=== PATIENT | male | born 1980 | race Two or more races ===

== ENCOUNTER 2019-06-12 11:08 | Emergency (ER) | payer SELFPAY ==
[~2019-06-12] VITALS: Ht 160 cm; Wt 81.6 kg
[2019-06-12 11:08] VITALS: BP 135/80
--- NOTE | 2019-06-12 12:36 | Emergency Room Report ---
History of Present Illness General Chief Complaint: Alcohol Intoxication Source: Patient (Ministerio Tilley MD) Present Illness HPI 39-year-old male presents with acute alcohol intoxication, alleviated by not drinking alcohol severity is moderate, constant he was drinking earlier today with some friends, he had no fall no trauma liquor store called 911 to have them removed patient presents for acute alcohol intoxication COVID-19 risk:Contact w/high r: No COVID-19 risk:Travel to affect: No Has patient experienced jones: No (Ministerio Tilley MD) Allergies: Coded Allergies: No Known Allergies (Unverified , 06/12/19) Patient History Limited by: medical condition - Currently intoxicated Past Medical History: see triage record Reviewed Nursing Documentation: PMH: Agreed; PSxH: Agreed (Ministerio Tilley MD) Nursing Documentation-PMH Past Medical History: No History, Except For Hx Diabetes: Yes (Ministerio Tilley MD) Review of Systems All Other Systems: limited - Currently intoxicated (Ministerio Tilley MD) Physical Exam Vital Signs Date Time Temp Pulse Resp B/P (MAP) Pulse Ox O2 Delivery O2 Flow Rate FiO2 06/12/19 11:02 120 18 130/85 (100) 98 Room Air 06/12/19 11:08 98.3 General Appearance: well appearing, no apparent distress Head: normocephalic, atraumatic Eyes: bilateral eye PERRL, bilateral eye EOMI ENT: hearing grossly normal, normal voice Neck: full range of motion, supple Respiratory: no respiratory distress, speaking full sentences Neurologic: alert, normal gait Psychiatric: mood/affect normal Skin: no rash (Ministerio Tilley MD) Medical Decision Making Diagnostic Impression: Primary Impression: Acute alcoholic intoxication Qualified Codes: F10.920 - Alcohol use, unspecified with intoxication, uncomplicated ER Course 39-year-old male presents with acute alcohol intoxication will continue to observe patient until sobriety Patient signed out to Dr. Hall (Ministerio Tilley MD) Last Vital Signs Date Time Temp Pulse Resp B/P (MAP) Pulse Ox O2 Delivery O2 Flow Rate FiO2 06/12/19 11:08 112 18 Room Air 06/12/19 11:08 98.3 135/80 98 (Ministerio Tilley MD) Reevaluation Time: 18:36 Status: improved Reevaluation Impression Patient is clinically sober. He is awake and ambulatory. He is eating at bedside. Provided him with resources regarding alcohol abuse. Stable for outpatient follow-up. Discussed reasons to return to the emergency department. (John Hall MD) Disposition: HOME, SELF-CARE Condition: Stable Referrals: NOT CHOSEN IPA/MD,REFERRING (PCP) [facility]. [facility] Patient Instructions: Alcohol Intoxication, [id number] Additional Instructions: The patient was provided with discharge instructions, notified to follow-up with a primary care doctor and or specialist in the next 24-48 hours, and to return to the ED if they have worsening of their symptoms. Please note that this report is being documented using [employer] technology. This can lead to erroneous entry secondary to incorrect interpretation by the dictating instrument. Ministerio Tilley MD Jun 12, 2019 12:36 John Hall MD Jun 12, 2019 18:37
[2019-06-12 12:43] VITALS: BP 130/74
[2019-06-12 14:48] VITALS: BP 126/82
[2019-06-12 16:29] VITALS: BP 129/74
[2019-06-12 19:02] VITALS: BP 138/80
[2019-06-12 19:11] VITALS: BP 135/80
== END 2019-06-12 19:11 | disposition home or self-care (01) ==
LOC: EDBD 11:08 → EMR 11:29
DX: F10.920 Alcohol use, unspecified with intoxication, uncomplicated (principal); E11.9 Type 2 diabetes mellitus without complications
CPT/HCPCS: 96360; 99284; J7030